=== PATIENT | male | born 2000 | race Caucasian/White ===

== ENCOUNTER 2023-05-24 01:09 | Emergency (ER) | payer OTHER ==
[~2023-05-24] VITALS: Ht 180.3 cm; Wt 93.2 kg
[2023-05-24] MEDS ORDERED: IBUP-1022 PO (01:24)
[2023-05-24] MEDS ORDERED: ACETAMINOPHEN 325 MG TAB PO ONE (01:55)
[2023-05-24] MEDS ORDERED: NS 1,000 ML IV ONE (08:10)
[2023-05-24] MEDS ORDERED: dexAMETHasone 20MG/5ML VIAL IV ONE (08:10)
[2023-05-24] MEDS ORDERED: KETOROLAC 30 MG/ML 1ML VIAL IV ONE (08:10)
[2023-05-24 08:38] LABS: HEMATOCRIT 42.9 % (42.0-52.0); HEMOGLOBIN 14.4 g/dl (13.5-17.5); MEAN CORPUSCULAR HEMOGLOBIN 28.8 pg (27.0-33.0); MEAN CORPUSCULAR HGB CONC 33.6 g/dl (32.0-36.5); MEAN CORPUSCULAR VOLUME 85.8 fl (80.0-96.0); PLATELET COUNT, AUTOMATED 136 10^3/uL (150-450)
[2023-05-24 08:58] LABS: ATYPICAL LYMPH 27 % (0-5); BASOPHILS 1 % (0-1); LYMPHOCYTES 26 % (16-44); MONOCYTES 10 % (0-5); NEUTROPHILS 36 % (28-66); TOXIC VACUOLATION 1+
[2023-05-24 08:59] LABS: ANISOCYTOSIS 1+; PLATELET ESTIMATE DECREASED (NORMAL)
[2023-05-24] MEDS ORDERED: ISOVUE-370 76% 100ML VIAL As Ordered ONE (09:04)
[2023-05-24 09:12] LABS: LIPASE 25 U/L (12-53)
[2023-05-24 09:14] LABS: ALBUMIN 3.5 G/DL (3.2-5.2); ALKALINE PHOSPHATASE 129 U/L (46-116); ALT/SGPT 290 U/L (7.0-40); AST/SGOT 171 U/L (<34); BILIRUBIN,DIRECT 0.4 MG/DL (<0.4); BILIRUBIN,TOTAL 0.8 MG/DL (0.3-1.2); TOTAL PROTEIN 6.5 G/DL (5.7-8.2)
[2023-05-24 09:17] LABS: MONO REFLEX EBV COMP POSITIVE (NEGATIVE)
[2023-05-24] MEDS ORDERED: PRED20TA PO (09:52)
[2023-05-24 09:57] VITALS: BP 130/74; TEMP 98.1; O2SAT 99
== END 2023-05-24 10:04 | disposition home or self-care (01) ==
LOC: M ED 01:09
DX: B27.90 Infectious mononucleosis, unspecified without complication (principal)
CPT/HCPCS: 70491; 80047; 80076; 83690; 85025; 86308; 87486; 87581; 87633; 87798; 87880; 96374; 96375; 99284; J1100; J1885; Q9967